=== PATIENT | male | born 1965 | race Caucasian/White ===

== ENCOUNTER 2016-03-01 10:06 | Inpatient (IN) ==
--- NOTE | 2016-03-01 10:47 | EKG Report ---
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
[2016-03-01] MEDS ORDERED: LABETALOL 20 MG/4 ML SYRINGE IV STA (10:52)
[2016-03-01] MEDS ORDERED: ASPIRIN 325 MG TABLET PO STA (10:52)
[2016-03-01 10:56] LABS: Basophils # 0.1 10*3/uL (0.0-0.2); Basophils % 1.5 % (0.0-0.8); Eosinophils # 0.3 10*3/uL (0.0-0.87); Eosinophils % 3.5 % (0.00-10.9); Hemoglobin 17.6 GM/DL (14.0-18.0); Immature Granulocytes % 0.3 %; Immature Granulocytes Absolute 0.02 #; Lymphocytes # 1.6 10*3/uL (1.4-4.0); Lymphocytes % 22.8 % (21.2-54.2); Mean Corpuscular HGB Conc 35.2 GM/DL (32-36); Mean Corpuscular Hemoglobin 32 PG (27-34); Mean Corpuscular Volume 90.9 FL (87-102); Mean Platelet Volume 11.3 FL (9.6-12.0); Monocytes # 0.7 10*3/uL (0.11-0.8); Monocytes % 9.6 % (1.7-12.7); Neutrophils # 4.5 10*3/uL (1.4-7.4); Neutrophils % 62.3 % (38.7-73.9); Platelet Count 254 10*3/uL (130-400); Red Cell Distribution Width 12.8 % (9.3-17.3); White Blood Count 7.2 10*3/uL (4.5-13.71)
[2016-03-01 11:02] LABS: PT Patient Result 10.6 SECS; Partial Thromboplastin Time 26.9 SECS (0-40)
[2016-03-01] MEDS ORDERED: LABETALOL 20 MG/4 ML SYRINGE IV ONE (11:03)
[2016-03-01] MEDS ORDERED: ASPIRIN 325 MG TABLET ONE (11:03)
--- NOTE | 2016-03-01 11:15 | Emergency Department Note ---
ITam Brittany, am scribing for, and in the presence of, Tee Carreno MD 11:13. Ev Santos Charles R, MD, personally performed the services described in this documentation, ascribed by Della Turcios in my presence, and it is both accurate and complete . Arrival - Arrival Chief Complaint: Neuro Stated Complaint: numb left side. possibly stroke ED Nursing Triage Note: c/o lt arm and leg numbness happened about 1900 last night lasting for about 30 minutes then it happened again 0800. 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 Mode of Arrival: Ambulatory Limitations: No Limitations Source: Patient, Family Time Seen by Provider: 03/01/16 10:34 - History of Present Illness HPI Narrative: This is a 50 y/o white male,who presents to the ED for further neurological evaluation. He states last night his left arm and left leg started to tingle. He states he thought it was asleep. He states the tingling stopped and then started again this morning. He denies any slurred speech or facial drooping. He reports his left arm and leg feels heavy. He does have a PMHx of HTN. He does not take his BP meds regularly. He reports out of a 7 day week, he takes his blood pressure meds 3 days. Pt has no other complaints/pain in the ED at this time. Pt has a PMHx of HTN. Pt denies a surgical Hx. Pt denies a family medical Hx. Pt is a current every day smoker. Onset (ago): hour(s) (Started last night) Consistency: constant Severity: moderate Allergies/Adverse Reactions: Allergies Allergy/AdvReac Type Severity Reaction Status Date / Time No Known Allergies Allergy Unverified 03/01/16 10:14 Home Medications: Home Medications Medication Instructions Recorded Confirmed Type Amoxicillin 500 mg PO BID 03/01/16 03/01/16 History Omeprazole [Prilosec] 20 mg PO DAILY 03/01/16 03/01/16 History amLODIPine [Norvasc] 5 mg PO DAILY 03/01/16 03/01/16 History Review of System - Review of System 12 point system: reviewed and no additional remarkable complaints except as stated - Review of System Neurological: Present: other (Tnigling to the left arm and left foot) Medical,Surgical,& Family Hx - Medical History Cardio: History of: Hypertension - Social History Smoking Status: Smoker, status unknown Frequency of Alcohol Use: Occasionally Type of Drug Use: None Exam Physical Examination: NIH STROKE SCALE ASSESSMENT Initial Examination 1.a. Level of consciousness: Alert, keenly responsive 1.b. Ask patient and the month and his/her age: Answers both correctly 1.c. Ask patient to open and close eyes and bin cleaner and release non-paretic hand: Performs both tasks correctly 2. Best gaze - only horizontal eye movement: Normal 3. Visual field testing: No visual loss 4. Facial paresis - ask patient to smile and close eyes or grimace symmetry: Normal, symmetrical movement 5. Motor Function - Both arms: Right Arm: No drift - holds for full 10 seconds, amputation or joint fusion Left Arm: No drift - holds for full 10 seconds, amputation, or joint fusion 6. Motor Function - Both legs: Right Leg: No drift - holds for full 5 seconds, amputation or joint fusion Left Leg: No drift - holds for full 5 seconds, amputation or joint fusion 7. Limb ataxia - must be out of proportion to any weakness present: Absent, amputation or joint fusion 8. Sensory - use pinprick to test arm/leg/trunk/face: Pinprick less sharp or dull on the affected side 9. Best language - describe picture, name items: No aphasia 10. Dysarthria - read several words Normal, intubated or unable to test. 11. Extinction and inattention: No abnormality Initial Score: 1 Vital Signs: Vital Signs Temperature 97.3 F L 03/01/16 10:09 Pulse Rate 76 03/01/16 10:09 Respiratory Rate 18 03/01/16 10:09 Blood Pressure 193/123 03/01/16 10:09 O2 Sat by Pulse Oximetry 99 03/01/16 10:09 - General General appearance: alert, in no apparent distress - Head Head exam: Present: atraumatic, normocephalic, normal inspection - Eye Eye exam: Present: normal appearance, PERRL, EOMI - ENT ENT exam: Present: normal exam, normal oropharynx, mucous membranes moist - Neck Neck exam: Present: normal inspection, full ROM, trachea midline. Absent: tenderness, thyromegaly - Chest Chest inspection: Present: normal inspection. Absent: tenderness, rash, abscess - Respiratory Respiratory exam: Present: normal lung sounds bilaterally. Absent: rales, respiratory distress, rhonchi, stridor, wheezes - Cardiovascular Cardiovascular exam: Present: regular rate, normal rhythm, normal heart sounds. Absent: murmur, rubs, gallop, clicks - Abdominal Exam Abdominal exam: Present: soft, normal bowel sounds. Absent: distention, tenderness, guarding, rebound, rigidity - Extremities Exam Extremities exam: Present: normal inspection, full ROM, normal capillary refill. Absent: tenderness, pedal edema - Back Exam Back exam: Present: normal inspection, full ROM. Absent: tenderness, muscle spasm, rashes - Neurological Exam Neurological exam: Present: alert, oriented X3, CN II-XII intact, other (+ Babinski sign, decreased strength in the right side, and decreased strenght to the left side) - Psychiatric Psychiatric exam: Present: normal affect, normal mood. Absent: agitated, anxious - Skin Skin exam: Present: warm, intact, normal color. Absent: rash, diaphoresis Course - Consultations Consultation #1: Hospitalist will admit patient Time: 12:02 Results - Labs CBC & BMP: 03/01/16 10:37 03/01/16 10:37 Lab Results: I have reviewed the patients labs - Diagnostic Findings Procedure: Chest x-ray: report reviewed by me (Mild bibasilar atelectasis. ), CT : report reviewed by me (CT brain without Contrast: Negative CT brain without contrast. ) Disposition Clinical Impression: Transient cerebral ischemia, noncompliant hypertensive patient, Left-sided weakness Case discussed with: patient, patient's family Disposition: Still a Patient Condition: Stable Time of Disposition: 12:03
--- NOTE | 2016-03-01 11:16 | XRay Report ---
XR chest 1V portable Indication: Cardiomegaly. Chest one view: No comparison. Heart size and mediastinal contour are within normal limits given portable technique. No infiltrates are shown. There is mild atelectasis of lung bases. Impression: Mild bibasilar atelectasis. PROCEDURE INTERPRETED AT [facility] DEPARTMENT OF RADIOLOGY Final Report Signed by: Brayden Puga M.D.
--- NOTE | 2016-03-01 11:16 | CT Report ---
CT head/brain wo con Indication: Left-sided numbness. CT BRAIN WITHOUT CONTRAST DLP: 998 mGy*cm Comparison: None. Date of admission: 03/01/2016. Technique: Axial noncontrast CT images of the brain were obtained. Findings: No acute hemorrhage, mass or mass effect. Ventricles and sulci are appropriate for age. Montoya-white junction is maintained throughout. No focal bone lesions are shown. Visualized paranasal sinuses are clear. Impression: Negative CT brain without contrast. PROCEDURE INTERPRETED AT [facility] DEPARTMENT OF RADIOLOGY Final Report Signed by: Brayden Puga M.D.
[2016-03-01 11:25] LABS: Alanine Aminotransferase 25 U/L (16-61); Albumin 3.8 G/DL (3.4-5.0); Alkaline Phosphatase 90 U/L (45-117); Aspartate Amino Transferase 15 U/L (0-37); Blood Urea Nitrogen 14 MG/DL (7-18); Calcium 8.6 MG/DL (8.5-10.1); Glucose 112 MG/DL (74-106); Osmolality,Calculated 289.7 MOS/KG (273-304); Potassium 3.8 MMOL/L (3.5-5.1); Sodium 145 MMOL/L (136-145); Total Protein 7.2 G/DL (6.4-8.3); Troponin I Only < 0.015 NG/ML (0.00-0.045)
[2016-03-01 11:35] LABS: Apearance,Urine CLEAR (Clear); Bilirubin,Urine Negative (Negative); Blood, Urine Negative (Negative); Glucose,Urine (UA) 150 mg/dL (Negative); Ketones,Urine Negative (Negative); Mucus,Urine Occasional /LPF (Occasional); Nitrite,Urine Negative (Negative); Protein,Urine Negative; RBC,Urine <1 /HPF (0-4); Squamous Epithelial Cell,Urine Occasional /HPF (0-10); Urine Color Yellow (Yellow); Urine Specific Gravity 1.021 (1.001-1.035); Urine Urobilinogen < 2.0 EU/DL (0.2-1.0); WBC,Urine <1 /HPF (0-6)
[2016-03-01 11:55] LABS: Barbiturates Screen,Urine Negative (Negative); Benzodiazepines Screen,Urine Negative (Negative); Cannabinoid Screen,Urine Negative (Negative); Opiate Screen,Urine Negative (Negative); Phencyclidine Screen,Urine Negative (Negative)
[2016-03-01] MEDS ORDERED: MORPHINE 2 MG/1 ML SYRINGE IV PRN (12:20)
[2016-03-01] MEDS ORDERED: ONDANSETRON 4 MG/2 ML VIAL IV PRN (12:20)
[2016-03-01] MEDS ORDERED: LACTULOSE 20 GM/30 ML UDCUP PO PRN (12:20)
[2016-03-01] MEDS ORDERED: ACETAMINOPHEN 325 MG TABLET PO PRN (12:20)
[2016-03-01] MEDS ORDERED: hydrALAZINE 20 MG/1 ML VIAL IV PRN (12:25)
[2016-03-01 13:02] LABS: Risk Ratio 3.93; VLDL CHOLESTEROL 38.4 MG/DL
--- NOTE | 2016-03-01 14:08 | Ultrasound Report ---
Exam: US carotid duplex BI Date: 03/01/2016 12:20 PM Indication: Stroke symptoms left-sided weakness CT scan 03/01/2016. Findings: Grayscale color flow analysis and spectral analysis imaging was performed with image stored and captured. Right Flow velocities centimeters per second Common carotid artery: 97 Proximal ICA: 67 Distal ICA: 63 External carotid artery: 127 Vertebral artery: 58 ICA/CCA ratio: 0.7 Measurements in millimeters Distal ICA: 5.2 Left: Flow velocities centimeters per second Common carotid artery: 81 Proximal ICA: 43 Distal ICA: 79 External carotid artery: 146 Vertebral artery: 58 ICA/CCA ratio: 1.0 Measurements in millimeters Distal ICA: 4.7 No obvious spectral broadening. Intimal hyperplasia is present. Normal color flow Impression: 1. 0-15% stenosis bilaterally Today studies were performed utilizing indirect NASCET criteria The ultrasound images were stored and captured PROCEDURE INTERPRETED AT [facility] DEPARTMENT OF RADIOLOGY Final Report Signed by: Dr. Ruddy Mccoy
--- NOTE | 2016-03-01 15:46 | Neurology Consult Note ---
History of Present Illness History of present illness: This is a 50 y/o right-handed white male with past medical history significant for hypertension and smoking who presents to the ED for further neurological evaluation. He states last night his left arm and left leg started to tingle. He states he thought it was asleep. He states the tingling stopped and then started again this morning. He denies any slurred speech or facial drooping. He reports his left arm and leg feels heavy. He does have a PMHx of HTN. He does not take his BP meds regularly. He reports out of a 7 day week, he takes his blood pressure meds 3 days. Pt has no other complaints/pain at this time. Pt is a current every day smoker. Home Medications Medication Instructions Recorded Confirmed Type Amoxicillin 500 mg PO BID 03/01/16 03/01/16 History Omeprazole [Prilosec] 20 mg PO DAILY 03/01/16 03/01/16 History amLODIPine [Norvasc] 5 mg PO DAILY 03/01/16 03/01/16 History Allergies Allergy/AdvReac Type Severity Reaction Status Date / Time No Known Allergies Allergy Unverified 03/01/16 10:14 12 point system: reviewed and no additional remarkable complaints except as stated Medical,Surgical,& Family Hx - Medical History Cardio: History of: Hypertension - Social History Smoking Status: Smoker, status unknown Frequency of Alcohol Use: Occasionally Type of Drug Use: None Exam - Constitutional Exam: GENERAL: Patient is in no acute distress. NECK: Neck is supple. There is no JVD. No carotid bruits present. No thyroid masses. CVS: First and second heart sounds are normal. There is no S3 present. Regular rate and rhythm. RESPIRATORY: Lungs are clear to auscultation without any rales or rhonchi. ABDOMEN: Soft and non-tender. Bowel sounds are present. There is no hepatosplenomegaly. EXT: There is no palpable edema. Peripheral pulses are present. Skin: No rashes Central Nervous system: General: Alert, awake and Oriented x 3 Speech: Fluent Comprehension: Intact and normal Facial expressions: Normal Cranial Nerves: CN1/Olfactory: Normal CN II/ Optic: Normal, Visual Izaguirre unreliable CN III, and : JHONATHAN & EOMI CN V: Normal & intact CN VII: face is symmetric CNVIII: Normal CN XI/X/XI/XII: Intact and Normal Motor: Bulk and Tone is normal. Strength in the right 5/5 Strength in the left 4+/5 Sensory: Questionably decreased for all the modalities of PP, LT and temp sense in the left arm and leg Reflexes: 1+ and symmetrical Cerebellar function: Normal finger to nose and heel to caraballo testing. Gait: Normal heel to heel and toe to toe and tandem walk. Results - Labs CBC & BMP: 03/01/16 10:37 03/01/16 10:37 Assessment and Plan (1) Left-sided weakness Status: Acute Assessment and plan: This is strongly suggestive of right subcortical infarct. Agree with aspirin a day. Add Lipitor 10 mgpo daily Agree with MRI of the brain, echo. Carotid ultrasound has been unremarkable Thank you for the consult Current Visit: Yes
--- NOTE | 2016-03-01 15:57 | Hospitalist History & Physical ---
Assessment and Plan - Time spent with patient Time spent with patient: Greater than 30 minutes (1) Left-sided weakness Status: Acute Current Visit: Yes (2) Transient cerebral ischemia Status: Acute Assessment and plan: admit carotid dopplers MRI brain, echo lipid panel asa routine labs in Am DVT prophylaxis PRN meds resume home BP meds PRN Hydralazine, pt was hypertensive in ER further plan and addendum to follow per Dr. Kirkland Current Visit: Yes History of Present Illness Chief complaint: cva History of present illness: Mr. Dugan is a 50 year old male who presents to the ER complaining of tingling in his left side that started last night which then resolved. This morning he got up and drove to [employer] when the tingling and numbness in his left side and less cheek returned. He states he could not clam picker his cuff. Cranial nerve II through XII okay. 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 Past medical history of hypertension. He is a daily smoker. He still works daily, and lives at home. Father has a history of heart problems in mother has a past medical history of breast cancer. Otherwise normal exam, no neurological deficits noted. Home Medications Medication Instructions Recorded Confirmed Type Amoxicillin 500 mg PO BID 03/01/16 03/01/16 History Omeprazole [Prilosec] 20 mg PO DAILY 03/01/16 03/01/16 History amLODIPine [Norvasc] 5 mg PO DAILY 03/01/16 03/01/16 History Allergies Allergy/AdvReac Type Severity Reaction Status Date / Time No Known Allergies Allergy Unverified 03/01/16 10:14 Medical,Surgical,& Family Hx - Medical History Cardio: History of: Hypertension - Social History Smoking Status: Smoker, status unknown Frequency of Alcohol Use: Occasionally Type of Drug Use: None 12 point system: reviewed and no additional remarkable complaints except as stated Exam - Constitutional General appearance: no acute distress - Head Head exam: Present: normal inspection, normocephalic - Eye Eye exam: Present: EOMI. Absent: scleral icterus Pupils: Present: JHONATHAN, normal accommodation - ENT ENT exam: Present: normal exam, normal oropharynx - Neck Neck exam: Present: normal inspection. Absent: lymphadenopathy - Respiratory Respiratory exam: Present: clear to auscultation bilaterally. Absent: wheezes - Cardiovascular Cardiovascular exam: Present: regular rate and rhythm. Absent: tachycardia - GI/Abdominal GI/Abdominal exam: Present: normal bowel sounds, soft. Absent: tenderness - Extremities Exam Extremities exam: Present: normal inspection, full ROM. Absent: edema - Back Exam Back exam: Present: normal inspection. Absent: muscle spasm - Neurological Exam Neurological exam: Present: alert, oriented X3 - Psychiatric Psychiatric exam: Present: normal affect, normal mood - Skin Skin exam: Present: normal color, warm, dry Results - Labs CBC & BMP: 03/01/16 10:37 03/01/16 10:37 Lab Results: I have reviewed the past 24 hour labs Quality Measures - Stroke Onset of Symptoms Date: 02/29/16
--- NOTE | 2016-03-01 16:28 | Magnetic Resonance Report ---
Exam: MR head/brain wo con Date: 03/01/2016 12:20 PM Comparison: None Indication: Left-sided numbness stroke symptoms Technical: 1.5 Opal magnet Axial T1 pre-and , ADC, DWI, FLAIR, gradient echo and FSE T2 Sagittal T1 precontrast, FLAIR Coronal FSE T2 Contrast:0 cc Dotarem Findings: Exam reveals abnormal ADC/ diffusion imaging. Bright signal foci in the right high posterior centrum semiovale consistent with an area of acute infarction present. The brainstem reveals minimal small vessel changes present in the bianca region. The cerebellum exhibit normal signal characteristics. The cerebral hemispheres exhibit abnormal signal characteristics. Scattered minimal bright signal foci in the periventricular and subcortical white matter regions are seen on the FLAIR sequence. The corpus callosum is unremarkable. The seventh and eighth cranial nerves and cerebral pontine angles are intact. The pituitary gland, infundibulum and optic chiasm are intact. The paranasal sinuses exhibit minimal fluid in the left maxillary sinus and the sphenoid sinuses bilaterally with mild inflammation in the ethmoid and frontal sinuses. . The mastoid sinuses are unremarkable. The globes and intra-and extraconal spaces are unremarkable. Impression: 1. Acute infarction involving the right posterior high centrum semiovale the subcortical junction 2. Small vessel ischemic changes suspected in the periventricular subcortical white matter regions. Demyelinating process cannot be excluded. Vasculitis and toxic metabolites are also considered. 3. No obvious hemorrhage present. PROCEDURE INTERPRETED AT [facility] DEPARTMENT OF RADIOLOGY Final Report Signed by: Dr. Ruddy Mccoy
--- NOTE | 2016-03-01 16:54 | ECHO Report ---
Antonio Dugan Exam Date: 03/01/2016 12:55 Referring Physician: Technologist: Patricia GUZMAN Age: 50 Ht (in): Wt (lb): Gender: M Exam Location: [facility] Echo Indications: R/O CVA BP: / HR: Rhythm: Sinus Technical Quality: Good IMPRESSIONS No obvious embolic source. No mass or thrombus seen. Mild concentric left ventricular hypertrophy. Left ventricular ejection fraction is estimated at > 55 %. Mildly thickened mitral valve with trace mitral regurgitation. Aortic valve sclerosis without stenosis or regurgitation. Mild tricuspid valve regurgitation. Tricuspid regurgitation velocities suggest a PAP of 17.3 mmHg + RAP. MEASUREMENTS (Male / Female) Normal Values 2D ECHO LV Diastolic Diameter PLAX 4.7 cm 4.2 - 5.9 / 3.9 - 5.3 cm LV Systolic Diameter PLAX 3.5 cm LV Fractional Shortening PLAX 26.0 % IVS Diastolic Thickness 1.3 cm 0.6 - 1.0 / 0.6 - 0.9 cm LVPW Diastolic Thickness 1.0 cm 0.6 - 1.0 / 0.6 - 0.9 cm RV Internal Dim ED PLAX 3.3 cm Aortic Root Diameter 2.7 cm LA Systolic Diameter LX 3.5 cm 3.0 - 4.0 / 2.7 - 3.8 cm DOPPLER TR Peak Velocity 208.0 cm/s TR Peak Gradient 17.3 mmHg FINDINGS Left Ventricle Mildly increased septal wall thickness. Mild concentric left ventricular hypertrophy. Left ventricular ejection fraction is estimated at > 55 %. Right Ventricle Normal right ventricular size. Right Atrium Normal right atrial size. Left Atrium Normal left atrial size. Mitral Valve Mildly thickened mitral valve with trace mitral regurgitation. Aortic Valve Aortic valve sclerosis without stenosis or regurgitation. Tricuspid Valve Morphologically normal tricuspid valve. Mild tricuspid valve regurgitation. Tricuspid regurgitation velocities suggest a PAP of 17.3 mmHg + RAP. Pulmonic Valve Morphologically normal pulmonic valve. Pericardium No pericardial effusion. Aorta Normal size aortic root and proximal ascending aorta. Bert Massey MD (Electronically Signed) Final Date: 01 March 2016 16:53
[2016-03-01] MEDS ORDERED: ATORVASTATIN 10 MG TABLET PO SCH (21:00)
[2016-03-01] MEDS: ENOXAPARIN 40 MG/0.4 ML SYRINGE SUBCUT SCH (22:01)
[2016-03-01] MEDS: NICOTINE 21 MG/24 HR PATCH TRANSDERM SCH (22:01)
[2016-03-02] MEDS: ENOXAPARIN 40 MG/0.4 ML SYRINGE SUBCUT SCH (03:32)
[2016-03-02 06:15] LABS: Basophils # 0.1 10*3/uL (0.0-0.2); Basophils % 1.2 % (0.0-0.8); Eosinophils # 0.3 10*3/uL (0.0-0.87); Eosinophils % 4.1 % (0.00-10.9); Hematocrit 45.7 VOL% (42.0-52.0); Hemoglobin 15.8 GM/DL (14.0-18.0); Immature Granulocytes % 0.3 %; Immature Granulocytes Absolute 0.02 #; Lymphocytes # 2.1 10*3/uL (1.4-4.0); Lymphocytes % 30.8 % (21.2-54.2); Mean Corpuscular HGB Conc 34.6 GM/DL (32-36); Mean Corpuscular Hemoglobin 31 PG (27-34); Mean Corpuscular Volume 89.8 FL (87-102); Mean Platelet Volume 11.6 FL (9.6-12.0); Monocytes # 0.7 10*3/uL (0.11-0.8); Monocytes % 9.9 % (1.7-12.7); Neutrophils # 3.7 10*3/uL (1.4-7.4); Neutrophils % 53.7 % (38.7-73.9); Platelet Count 250 10*3/uL (130-400); Red Blood Count 5.09 10*6/uL (3.8-5.5); White Blood Count 6.9 10*3/uL (4.5-13.71)
[2016-03-02 06:53] LABS: Albumin 3.5 G/DL (3.4-5.0); Bilirubin,Total 0.7 MG/DL (0.2-1.0); Calcium 8.7 MG/DL (8.5-10.1); Osmolality,Calculated 287.8 MOS/KG (273-304); Osmolality,Calculated 289.7 MOS/KG (273-304); Potassium 4.1 MMOL/L (3.5-5.1); Total Protein 6.5 G/DL (6.4-8.3)
--- NOTE | 2016-03-02 08:34 | Physician Query Form ---
CLICK EDIT DOCUMENT TO SELECT QUERY ANSWER --> OK --> SIGN Riri Gooden RN, CCDS Certified Clinical Global Supply Chain Vice President W) [phone] (f) [phone] [email or web address] PROVIDERS: Make your selection(s) from the choices in EACH section by typing an "x" and enter comments in the comment section. Please use your independent medical judgment in providing your response. This request does not imply that any particular answer is desired or expected. CLINCAL INDICATORS: (Providers should not edit this section) The medical record indicates that the patient was admitted with question of TIA , "Noncompliant hypertensive patient", some tingling in the left arm/ leg, only takes meds about 3 days a week, BP in the ER 193/123 and the patient was treated with Labetalol. Note: Hypertensive crises can present as hypertensive urgency or hypertensive emergency. Clarify which, if any of the following, is a more accurate diagnosis reflecting the type and acuity of the documented hypertension: TYPE: (x ) Hypertensive Urgency ( ) Hypertensive Emergency ( ) Uncontrolled chronic hypertension at baseline ( ) Other, please specify: ( ) Clinically unable to determine Criteria Source - Up to Date (This topic last updated: Apr 16, 2015) HYPERTENSIVE URGENCY: Severe hypertension (usually a diastolic blood pressure above 120 mmHg) in asymptomatic patients is referred to as hypertensive urgency. There is no proven benefit from rapid reduction in blood pressure in asymptomatic patients who have no evidence of acute end-organ damage and are at little short-term risk. HYPERTENSIVE EMERGENCY: Severe hypertension (usually a diastolic blood pressure above 120 mmHg) with evidence of acute end-organ damage is defined as a hypertensive emergency. A hypertensive emergency can be life threatening and requires immediate treatment, usually with parenteral medications in a monitored setting. COMMENTS: Use of terms such as suspected, likely, or probable (associated with a specific diagnosis that is being evaluated, monitored, or treated as if it exists) are acceptable and can be restated in the discharge summary if not ruled out. MTDD
[2016-03-02] MEDS ORDERED: PANTOPRAZOLE 40 MG TABLET PO SCH (09:00)
[2016-03-02] MEDS ORDERED: amLODIPine 5 MG TABLET PO SCH (09:00)
[2016-03-02] MEDS ORDERED: ASPIRIN 325 MG TABLET PO SCH (09:00)
[2016-03-02] MEDS: NICOTINE 21 MG/24 HR PATCH TRANSDERM SCH (10:01)
--- NOTE | 2016-03-02 10:27 | Hospitalist Progress Note ---
Assessment and Plan - Time spent with patient Time spent with patient: Greater than 30 minutes (1) CVA (cerebral vascular accident) Status: Acute Assessment and plan: Continue medical management. Defer any further workup to Neurology, expect discharge after complete neurology evaluation. Current Visit: Yes (2) Hyperlipidemia Status: Acute Assessment and plan: Continue medical management. Current Visit: Yes (3) Hypertension Status: Acute Assessment and plan: Continue medical management. Current Visit: Yes Hospitalist: Subjective Interval history: No complaints, no overnight events. Reports improving sensation in left arm, does not feel as heavy as it did on admission. Exam - Constitutional Vitals: Period Temp Pulse Resp BP Sys/Hanna Pulse Ox Last 24 Hr 97.2 F-97.8 F 58-65 18-20 121-147/72-85 97-99 General appearance: no acute distress - Head Head exam: Present: normocephalic, atraumatic - Eye Eye exam: Present: EOMI Pupils: Present: JHONATHAN - ENT ENT exam: Present: normal exam - Neck Neck exam: Present: normal inspection - Respiratory Respiratory exam: Present: clear to auscultation bilaterally. Absent: rhonchi, wheezes - Cardiovascular Cardiovascular exam: Present: regular rate and rhythm. Absent: gallop, rubs, systolic murmur - GI/Abdominal GI/Abdominal exam: Present: normal bowel sounds, soft. Absent: distended, firm , guarding, tenderness, rebound - Extremities Exam Extremities exam: Present: normal inspection. Absent: calf tenderness, edema - Neurological Exam Neurological exam: Present: alert, oriented X3, CN II-XII intact Results - Labs CBC & BMP: 03/02/16 05:40 03/02/16 05:40 Lab Results: I have reviewed the past 24 hour labs Quality Measures - Stroke Onset of Symptoms Date: 02/29/16
--- NOTE | 2016-03-02 16:56 | Discharge Summary ---
Hospital Course - Hospital Course Hospital Course: CVA: Mr Dugan was admitted for left upper extremity symptoms concerning for a CVA. CT head unremarkable. MRI reveals an acute infarction in the right posterior high centrum semiovale. Carotid U/S normal. Echocardiogram unremarkable. He was seen in consultation by Neurology. He was started on lipitor for lipid control. He will also continue ASA 325mg as an outpatient. He will follow up with Neurology in 4 weeks. By discharge he had met maximum benefit of hospitalization. - Time spent with patient Time with patient DS: Greater than 30 minutes Diagnosis - Discharge Diagnosis (1) CVA (cerebral vascular accident) Status: Acute (2) Hyperlipidemia Status: Acute (3) Hypertension Status: Acute Specialty Discharge - Follow Up or Referrals Follow up with: Dylan Lewis MD [Physician] - 04/01/16 9:00 am Discharge Plan - Discharge Data Disposition: Disch To Home/Self Care Condition at Discharge: Stable Discharge Diet: advance to your usual diet - Discharge Medications New Aspirin Tab 325 mg PO DAILY #30 tablet Atorvastatin [Lipitor] 10 mg PO BEDTIME #30 tablet Nicotine 21 mg/24 Hr Patch [Nicoderm CQ 21 mg/24 hr Patch] 1 patch TRANSDERM DAILY #30 patch Continue Amoxicillin 500 mg PO BID amLODIPine [Norvasc] 5 mg PO DAILY Omeprazole [Prilosec] 20 mg PO DAILY - Follow Up or Referral Follow Up: Dylan Lewis MD [Physician] - 04/01/16 9:00 am - Forms/Instructions Forms: Acute Care Work/School Release Exam - Constitutional Vitals: Period Temp Pulse Resp BP Sys/Hanna Pulse Ox Last 24 Hr 97.2 F-97.8 F 59-66 18-20 121-156/72-89 97-98 General appearance: normal weight, no acute distress - Head Head exam: Present: normal inspection, normocephalic, atraumatic - Eye Eye exam: Present: EOMI Pupils: Present: JHONATHAN - ENT ENT exam: Present: normal exam - Neck Neck exam: Present: normal inspection - Respiratory Respiratory exam: Present: clear to auscultation bilaterally - Cardiovascular Cardiovascular exam: Present: regular rate and rhythm - GI/Abdominal GI/Abdominal exam: Present: normal bowel sounds - Extremities Exam Extremities exam: Present: normal inspection Discharge Results Labs on day of discharge: Labs from last 24 hours 03/02/16 03/02/16 03/02/16 05:40 05:40 05:40 WBC 6.9 RBC 5.09 Hgb 15.8 Hct 45.7 MCV 89.8 MCH 31 MCHC 34.6 RDW 13.0 Plt Count 250 MPV 11.6 Neut % (Auto) 53.7 Lymph % (Auto) 30.8 Sequoyah % (Auto) 9.9 Eos % (Auto) 4.1 Baso % (Auto) 1.2 H Neut # (Auto) 3.7 Lymph # (Auto) 2.1 Sequoyah # (Auto) 0.7 Eos # (Auto) 0.3 Baso # (Auto) 0.1 Immature Gran % 0.3 Nucleated RBC % 0.0 Immature Gran # 0.02 Nucleated RBCs # 0.00 Sodium 145 144 Potassium 4.1 4.1 Chloride 109 H 109 H Carbon Dioxide 27 27 Anion Gap 13.1 12.1 BUN 19 H 18 Creatinine 0.90 0.90 GFR Calculation 128 128 BUN/Creatinine Ratio 21.00 H 20.00 Glucose 99 96 Calculated Osmolality 289.7 287.8 Calcium 8.7 8.7 Total Bilirubin 0.70 AST 15 ALT 24 Alkaline Phosphatase 78 Total Protein 6.5 Albumin 3.5 Globulin 3.0 Albumin/Globulin Ratio 1.1 DS: Provider Date of admission: 03/01/16 12:22 Primary care physician: . No PCP Attending physician on admission: Nancy Kirkland MD Consults: 03/01/16 12:28 Consult to Pharmacy [CONS] Routine Reason for Pharmacy Consult: Adjust Meds Renal Funct 03/02/16 09:39 Consult to Case Mgmt/Social Srvs [CONS] Routine Reason for Case Mgmt/Social Srvs: Rehab Discharging clinician: Nancy Kirkland MD Expected date of discharge: 03/02/16
[2016-03-02 17:41] VITALS: BP 158/71
== END 2016-03-02 17:55 | disposition home or self-care (01) | DRG 65 ==
LOC: N.ED 10:06 → N.EDINP 12:20 → N.2E 13:25
PROVIDERS: ADMIT Internal Medicine; ATTEND Internal Medicine